=== PATIENT | female | born 1985 | race Caucasian/White ===

== ENCOUNTER → 2017-07-06 | Outpatient (CLI) | payer BC ==
--- NOTE | 2017-07-06 17:45 | XR ---
EXAMINATION TYPE: XR lumbar spine 2 or 3V DATE OF EXAM: 07/06/2017 COMPARISON: NONE HISTORY: 31-year-old female with lumbar pain TECHNIQUE: 3 views FINDINGS: Mild facet degenerative change lower lumbar spine. Minimal disc bulging may be present. Vertebral bod y heights are preserved and alignment is maintained. IMPRESSION: No vertebral compression collapse or malalignment.
== END | disposition home or self-care (01) ==
LOC: RADXRMAIN 15:59
PROVIDERS: ATTEND Family Medicine
DX: M54.5 Low back pain (principal)
CPT/HCPCS: 72100

== ENCOUNTER → 2018-07-13 | Outpatient (CLI) | payer BC ==
--- NOTE | 2018-07-13 12:40 | US ---
EXAMINATION TYPE: US abdomen complete DATE OF EXAM: 07/13/2018 COMPARISON: NONE CLINICAL HISTORY: R10.9 Abdominal Pain. Epigastric pain when bends over, with burning in abdomen; HT 5'9, WT 304lbs EXAM MEASUREMENTS: Liver Length: 14.1 cm Gallbladder Wall: 0.3 cm CBD: 0.2 cm Spleen: 10.5 cm Right Kidney: 9.7 x 6.1 x 5.3 cm Left Kidney: 10.0 x 5.3 x 4.6 cm Pancreas: hyperechoic and limitedly seen due to overlying bowel gas Liver: wnl Gallbladder: wnl Evidence for sonographic Chapman's sign: no CBD: wnl Spleen: vessel wall calcification is noted Right Kidney: wnl Left Kidney: hyperechoic very small focus noted lateral and may be calcified parallel vessel wall Upper IVC: wnl Abd Aorta: size is wnl IMPRESSION: 1. No acute abdominal ultrasound findings
== END | disposition home or self-care (01) ==
LOC: RADUSWWP 09:35
PROVIDERS: ATTEND Family Medicine
DX: R10.9 Unspecified abdominal pain (principal)
CPT/HCPCS: 76700

== ENCOUNTER → 2019-06-06 | Outpatient (CLI) | payer BC | END | disposition home or self-care (01) | LOC: LABWHC1 14:12 | PROVIDERS: ATTEND Obstetrics & Gynecology | DX: N97.0 Female infertility associated with anovulation (principal) | CPT/HCPCS: 36415; 84144 ==

== ENCOUNTER → 2019-08-06 | Outpatient (CLI) | payer BC | END | disposition home or self-care (01) | LOC: LABWHC1 15:43 | PROVIDERS: ATTEND Obstetrics & Gynecology | DX: N97.0 Female infertility associated with anovulation (principal) | CPT/HCPCS: 36415; 84144 ==

== ENCOUNTER → 2021-09-28 | Outpatient (CLI) | payer BC ==
--- NOTE | 2021-09-29 07:38 | MM ---
Reason for exam: clinical finding. Baseline mammogram. History: Patient is nulliparous. Took hormonal contraceptives for 2 months beginning at age 19. Physical Findings: Nurse did not find any significant physical abnormalities on exam. MG 3D Diag Mammo W/Cad ISABEL Bilateral CC and MLO view(s) were taken. There are scattered fibroglandular densities. Finding #1: There is a 4 mm equal density (isodense), oval mass in the 12 o'clock position of the right breast. Finding #2: There are typically benign calcifications in both breasts. These results were verbally communicated with the patient and result sheet given to the patient on 09/28/21. ASSESSMENT: Incomplete: need additional imaging evaluation, BI-RAD 0 RECOMMENDATION: Ultrasound of the right breast.
--- NOTE | 2021-09-29 07:40 | USB ---
Reason for exam: additional evaluation requested from abnormal screening. History: Patient is nulliparous. Took hormonal contraceptives for 2 months beginning at age 19. US Breast Limited RT Right limited breast ultrasound including focal area of concern, retroareolar and axilla demonstrates a 0.4 x 0.4 x 0.3cm oval, cystic lesion at 12 o'clock palpable. These results were verbally communicated with the patient and result sheet given to the patient on 09/28/21. ASSESSMENT: Probably benign, BI-RAD 3 RECOMMENDATION: Follow-up diagnostic mammogram of the right breast in 6 months.
== END | disposition home or self-care (01) ==
LOC: RADMAMWWP 14:16
PROVIDERS: ATTEND Obstetrics & Gynecology
DX: N60.01 Solitary cyst of right breast (principal); N63.15 Unspecified lump in the right breast, overlapping quadrants; R92.1 Mammographic calcification found on diagnostic imaging of breast
CPT/HCPCS: 77062; 77066

== ENCOUNTER 2021-10-13 23:03 | Emergency (ER) | payer BC ==
[2021-10-13 23:07] VITALS: BP 107/70; PULSE 111; RESP 19; TEMP 98.1
--- NOTE | 2021-10-14 01:33 | ED ---
SOB HPI - General Chief Complaint: Shortness of Breath Stated Complaint: Shortness of Breath, COVID+ Time Seen by Provider: 10/14/21 01:09 Source: patient, RN notes reviewed Mode of arrival: ambulatory Limitations: no limitations - History of Present Illness Initial Comments: Patient is a 35-year-old female that presents to the emergency department comp laining of increasing symptoms after being diagnosed with Covid. Patient is otherwise well-appearing in no apparent distress or pain. She denied any chest pain headache nausea vomiting diarrhea constipation fever fatigue chills. - Related Data Allergies Allergy/AdvReac Type Severity Reaction Status Date / Time No Known Allergies Allergy Verified 10/13/21 23:06 Review of Systems ROS Statement: Those systems with pertinent positive or pertinent negative responses have been documented in the HPI. ROS Other: All systems not noted in ROS Statement are negative. Past Medical History Past Medical History: No Reported History History of Any Multi-Drug Resistant Organisms: None Reported Past Surgical History: No Surgical Hx Reported Smoking Status: Never smoker Past Alcohol Use History: None Reported Past Drug Use History: None Reported General Exam Limitations: no limitations General appearance: alert, in no apparent distress, obese Head exam: Present: atraumatic, normocephalic, normal inspection Eye exam: Present: normal appearance, PERRL, EOMI. Absent: scleral icterus, conjunctival injection, periorbital swelling ENT exam: Present: normal exam, mucous membranes moist Neck exam: Present: normal inspection Respiratory exam: Present: normal lung sounds bilaterally. Absent: respiratory distress, wheezes, rales, rhonchi, stridor Cardiovascular Exam: Present: regular rate, normal rhythm, normal heart sounds. Absent: systolic murmur, diastolic murmur, rubs, gallop, clicks Extremities exam: Present: normal inspection, full ROM, normal capillary refill. Absent: tenderness, pedal edema, joint swelling, calf tenderness Neurological exam: Present: alert, oriented X3 Psychiatric exam: Present: normal affect, normal mood Skin exam: Present: warm, dry, intact, normal color. Absent: rash Course Vital Signs 10/13/21 23:04 Temperature 98.1 F Pulse Rate 111 H Respiratory 19 Rate Blood Pressure 107/70 O2 Sat by Pulse 99 Oximetry Medical Decision Making - Medical Decision Making 35 she'll female recently diagnosed with Covid. Patient does meet criteria for monoclonal antibody infusion. She does wish to undergo the infusion. Patient is agreeable with discharge home after infusion. Vital signs are stable and within normal limits and room. Case discussed with Dr. Bush, patient can discharge home. Disposition Clinical Impression: COVID Disposition: HOME SELF-CARE Condition: Stable Instructions (If sedation given, give patient instructions): Coronavirus Disease 2019 (COVID-19) Additional Instructions: Please return to the Emergency Department if symptoms worsen or any other concerns. Follow-up with primary care in 1-2 days. Quarantine per CDC guidelines. Is patient prescribed a controlled substance at d/c from ED?: No Referrals: Saul Dumas MD [Primary Care Provider] - 1-2 days Time of Disposition: 01:33
[2021-10-14] MEDS ORDERED: SODIUM CHLORIDE 0.9% 50 ML IVPB ONE (01:45)
[2021-10-14] MEDS ORDERED: BAMLANIVIMAB (EUA) 700 MG, ETESEVIMAB (EUA) 1,400 MG in SODIUM CHLORIDE 0.9% 50 ML IVPB ONE (02:00)
== END 2021-10-14 04:01 | disposition home or self-care (01) ==
LOC: EC 23:03
DX: U07.1 COVID-19 (principal); E66.9 Obesity, unspecified; Z68.41 Body mass index [BMI] 40.0-44.9, adult
CPT/HCPCS: 99284; J3490

== ENCOUNTER 2021-10-15 08:47 | Inpatient (IN) | payer BC ==
[2021-10-15] MEDS ORDERED: ACETAMINOPHEN TAB 500 MG TAB PO STA (08:59)
[2021-10-15] MEDS ORDERED: DEXAMETHASONE SOD PHOSPHATE 10 MG/ML 1 ML VIAL IV STA (09:00)
[2021-10-15] MEDS ORDERED: SODIUM CHLORIDE 0.9% 500 ML 500 ML IV ONE (09:23)
--- NOTE | 2021-10-15 09:23 | ED ---
General Adult HPI - General Chief complaint: Shortness of Breath Stated complaint: covid+, increased SOB Time Seen by Provider: 10/15/21 08:48 Source: patient, RN notes reviewed, old records reviewed Mode of arrival: ambulatory Limitations: no limitations - History of Present Illness Initial comments: 35-year-old female who had tested positive for coronavirus 5 days ago presents with increased cough and dyspnea. Patient has had low oxygen saturation at home. She's had fever and chills. She's had nausea and poor appetite with several episodes of vomiting. No central chest pain. No abdominal pain. Patient had received monoclonal antibodies 5 days ago. She's had symptoms for approximately 7 days. She was not vaccinated. - Related Data Home Medications Medication Instructions Recorded Confirmed Ascorbic Acid [Vitamin C] 500 mg PO DAILY 10/15/21 10/15/21 Cholecalciferol [Vitamin D3 (25 25 mcg PO DAILY 10/15/21 10/15/21 Mcg = 1000 Iu)] Ibuprofen [Motrin Ib] 800 mg PO Q8H PRN 10/15/21 10/15/21 Vitamin B Complex 1 cap PO DAILY 10/15/21 10/15/21 Zinc 50 mg PO DAILY 10/15/21 10/15/21 Allergies Allergy/AdvReac Type Severity Reaction Status Date / Time No Known Allergies Allergy Verified 10/15/21 10:45 Review of Systems ROS Statement: Those systems with pertinent positive or pertinent negative responses have been documented in the HPI. ROS Other: All systems not noted in ROS Statement are negative. Past Medical History Past Medical History: No Reported History History of Any Multi-Drug Resistant Organisms: None Reported Past Surgical History: No Surgical Hx Reported Past Psychological History: No Psychological Hx Reported Smoking Status: Former smoker Past Alcohol Use History: Occasional Past Drug Use History: None Reported General Exam Limitations: no limitations General appearance: alert, in no apparent distress Head exam: Present: atraumatic, normocephalic Eye exam: Present: normal appearance, PERRL ENT exam: Present: mucous membranes dry Neck exam: Present: normal inspection. Absent: tenderness, meningismus Respiratory exam: Present: respiratory distress, rales, rhonchi, decreased br eath sounds Cardiovascular Exam: Present: normal rhythm, tachycardia GI/Abdominal exam: Present: soft. Absent: distended, tenderness, guarding, rebound Extremities exam: Present: normal inspection, normal capillary refill Neurological exam: Present: alert, oriented X3, CN II-XII intact. Absent: motor sensory deficit Psychiatric exam: Present: normal affect, normal mood Skin exam: Present: warm, dry, intact. Absent: cyanosis, diaphoretic Course Vital Signs 10/15/21 10/15/21 10/15/21 08:49 09:25 11:20 Temperature 101.3 F H 99.2 F Pulse Rate 104 H 99 89 Respiratory 24 18 18 Rate Blood Pressure 131/70 114/69 103/63 O2 Sat by Pulse 87 L 93 L 94 L Oximetry EKG Findings - EKG Comments: EKG Findings:: EKG: Normal sinus rhythm, rate of 97, W[place] interval 1:30, QRS duration 82, QTC 419, no ST segment elevation. Medical Decision Making - Medical Decision Making 35-year-old female who had presented with increased cough and dyspnea as well as hypoxia, recent diagnosis of coronavirus. Patient is moderately dyspneic with oxygenation in the mid thigh 80s on room air. She does require supplemental oxygenation. Chest x-ray consistent with bilateral patchy infiltrate. She has elevated inflammatory markers including d-dimer, CRP and LVH. She will be admi tted for treatment of COVID-19 pneumonia with hypoxia. Case discussed with Dr. silverman who will admit. - Lab Data Result diagrams: 10/15/21 09:43 10/15/21 09:43 Lab Results 10/15/21 10/15/21 10/15/21 Range/Units 09:43 09:43 09:43 WBC 4.4 (3.8-10.6) k/uL RBC 4.08 (3.80-5.40) m/uL Hgb 11.9 (11.4-16.0) gm/dL Hct 34.5 (34.0-46.0) % MCV 84.4 (80.0-100.0) fL MCH 29.1 (25.0-35.0) pg MCHC 34.5 (31.0-37.0) g/dL RDW 13.5 (11.5-15.5) % Plt Count 189 (150-450) k/uL MPV 8.1 Neutrophils % 78 % Lymphocytes % 16 % Monocytes % 5 % Eosinophils % 0 % Basophils % 0 % Neutrophils # 3.5 (1.3-7.7) k/uL Lymphocytes # 0.7 L (1.0-4.8) k/uL Monocytes # 0.2 (0-1.0) k/uL Eosinophils # 0.0 (0-0.7) k/uL Basophils # 0.0 (0-0.2) k/uL PT 10.1 (9.0-12.0) sec INR 0.9 (<1.2) APTT 29.3 (22.0-30.0) sec D-Dimer 0.83 H (<0.60) mg/L FEU Sodium 132 L (137-145) mmol/L Potassium 3.5 (3.5-5.1) mmol/L Chloride 100 (98-107) mmol/L Carbon Dioxide 27 (22-30) mmol/L Anion Gap 5 mmol/L BUN 4 L (7-17) mg/dL Creatinine 0.68 (0.52-1.04) mg/dL Est GFR (CKD-EPI)AfAm >90 (>60 ml/min/1.73 sqM) Est GFR (CKD-EPI)NonAf >90 (>60 ml/min/1.73 sqM) Glucose 95 (74-99) mg/dL Plasma Lactic Acid Hoang (0.7-2.0) mmol/L Calcium 8.3 L (8.4-10.2) mg/dL Magnesium 1.8 (1.6-2.3) mg/dL Total Bilirubin 0.3 (0.2-1.3) mg/dL AST 67 H (14-36) U/L ALT 29 (4-34) U/L Alkaline Phosphatase 58 (38-126) U/L Lactate Dehydrogenase 1283 H (313-618) U/L C-Reactive Protein 18.6 H (<1.0) mg/dL Total Protein 6.2 L (6.3-8.2) g/dL Albumin 3.2 L (3.5-5.0) g/dL 10/15/21 Range/Units 09:43 WBC (3.8-10.6) k/uL RBC (3.80-5.40) m/uL Hgb (11.4-16.0) gm/dL Hct (34.0-46.0) % MCV (80.0-100.0) fL MCH (25.0-35.0) pg MCHC (31.0-37.0) g/dL RDW (11.5-15.5) % Plt Count (150-450) k/uL MPV Neutrophils % % Lymphocytes % % Monocytes % % Eosinophils % % Basophils % % Neutrophils # (1.3-7.7) k/uL Lymphocytes # (1.0-4.8) k/uL Monocytes # (0-1.0) k/uL Eosinophils # (0-0.7) k/uL Basophils # (0-0.2) k/uL PT (9.0-12.0) sec INR (<1.2) APTT (22.0-30.0) sec D-Dimer (<0.60) mg/L FEU Sodium (137-145) mmol/L Potassium (3.5-5.1) mmol/L Chloride (98-107) mmol/L Carbon Dioxide (22-30) mmol/L Anion Gap mmol/L BUN (7-17) mg/dL Creatinine (0.52-1.04) mg/dL Est GFR (CKD-EPI)AfAm (>60 ml/min/1.73 sqM) Est GFR (CKD-EPI)NonAf (>60 ml/min/1.73 sqM) Glucose (74-99) mg/dL Plasma Lactic Acid Hoang 0.6 L (0.7-2.0) mmol/L Calcium (8.4-10.2) mg/dL Magnesium (1.6-2.3) mg/dL Total Bilirubin (0.2-1.3) mg/dL AST (14-36) U/L ALT (4-34) U/L Alkaline Phosphatase (38-126) U/L Lactate Dehydrogenase (313-618) U/L C-Reactive Protein (<1.0) mg/dL Total Protein (6.3-8.2) g/dL Albumin (3.5-5.0) g/dL Disposition Clinical Impression: COVID, Hypoxia Disposition: ADMITTED IP TO THIS [facility] Condition: Stable Is patient prescribed a controlled substance at d/c from ED?: No Referrals: Saul Dumas MD [Primary Care Provider] - 1-2 days Decision to Admit Reason: Admit from EC Decision Date: 10/15/21 Decision Time: 11:24
--- NOTE | 2021-10-15 09:33 | XR ---
EXAMINATION TYPE: XR chest 1V portable DATE OF EXAM: 10/15/2021 COMPARISON: Prior chest x-ray March 06, 2012 HISTORY: Cough and congestion. TECHNIQUE: Single AP frontal upright view of the chest is obtained. FINDINGS: There are new bilateral multifocal opacities. The cardiac silhouette size is mildly enlar ged. The osseous structures are intact. IMPRESSION: New bilateral multifocal opacities consistent with covid-19 infection.
[2021-10-15 10:06] LABS: Basophils % (A) 0 %; Eosinophils % (A) 0 %; HCT 34.5 % (34.0-46.0); HGB 11.9 gm/dL (11.4-16.0); Lymphocytes # (A) 0.7 k/uL (1.0-4.8); Lymphocytes % (A) 16 %; MCH 29.1 pg (25.0-35.0); MCHC 34.5 g/dL (31.0-37.0); MCV 84.4 fL (80.0-100.0); Mean Platelet Volume 8.1; Monocytes # (A) 0.2 k/uL (0-1.0); Monocytes % (A) 5 %; Neutrophils # (A) 3.5 k/uL (1.3-7.7); Neutrophils % (A) 78 %; Platelet Count 189 k/uL (150-450); RBC 4.08 m/uL (3.80-5.40); RDW 13.5 % (11.5-15.5); WBC 4.4 k/uL (3.8-10.6)
[2021-10-15 10:19] LABS: ALT 29 U/L (4-34); AST 67 U/L (14-36); African American GFR (CKD) >90 (>60 ml/min/1.73 sqM); Albumin 3.2 g/dL (3.5-5.0); Alkaline Phosphatase 58 U/L (38-126); Anion Gap 5 mmol/L; Blood Urea Nitrogen 4 mg/dL (7-17); Calcium 8.3 mg/dL (8.4-10.2); Carbon Dioxide 27 mmol/L (22-30); Chloride 100 mmol/L (98-107); Glucose 95 mg/dL (74-99); LDH 1283 U/L (313-618); Magnesium 1.8 mg/dL (1.6-2.3); Non-African American GFR(CKD) >90 (>60 ml/min/1.73 sqM); Potassium 3.5 mmol/L (3.5-5.1); Sodium 132 mmol/L (137-145); Total Bilirubin 0.3 mg/dL (0.2-1.3); Total Protein 6.2 g/dL (6.3-8.2)
[2021-10-15 10:20] LABS: INR 0.9 (<1.2); Partial Thromboplastin Time 29.3 sec (22.0-30.0); Prothrombin Time 10.1 sec (9.0-12.0)
[2021-10-15 10:30] LABS: C Reactive Protein 18.6 mg/dL (<1.0)
[2021-10-15] MEDS ORDERED: ACETAMINOPHEN TAB 325 MG TAB PO PRN (11:22)
[2021-10-15] MEDS ORDERED: NALOXONE 0.4 MG/ML 1 ML VIAL IV PRN (11:22)
[2021-10-15] MEDS: SODIUM CHLORIDE 0.9% 1,000 ML IV SCH (11:55)
[2021-10-16] MEDS: SODIUM CHLORIDE 0.9% 1,000 ML IV SCH ×2 (00:50→14:58)
[2021-10-16] MEDS: ASCORBIC ACID 500 MG TAB PO SCH (08:53)
[2021-10-16] MEDS: CHOLECALCIFEROL 25 MCG (1000 IU) TABLET PO SCH (08:53)
[2021-10-16] MEDS: ENOXAPARIN 40 MG/0.4 ML SYRINGE SQ SCH (08:54)
[2021-10-16] MEDS: DEXAMETHASONE SOD PHOSPHATE 10 MG/ML 1 ML VIAL IVP SCH (08:54)
[2021-10-16 08:57] LABS: HCG,Qualitative Serum Not Detected
[2021-10-16] MEDS: ZINC SULFATE 220 MG CAP PO SCH (09:26)
[2021-10-16] MEDS: FAMOTIDINE 20 MG/2 ML VIAL IV SCH ×2 (09:26→20:27)
--- NOTE | 2021-10-16 09:39 | P.HPIM ---
History of Present Illness This is a pleasant 35 years old female with no significant past medical history presents because of dyspnea on 4 days duration, she was checking her oxygen at home and it was less than 88% so she decided to come to emergency room 2 days ago she went to urgent care and they diagnosed her with call with infection. Also she is complaining of from cough with phlegm, unknown color. She has some bilateral rib cage pain from coughi ng. She has little area and vomited once and some headache. She denies smoking, alcohol Or illicit drugs She is saturating 92% on 3 L oxygen via nasal cannula, rest of vitals are stable. CBC unremarkable except for mild lymphopenia. INR 0.9, d-dimer slightly elevated at 0.83. Sodium 132, rest of the BMP is unremarkable. Liver enzymes, no significant elevation of enzymes or bilirubin. Creatinine is elevated at 390, LDH elevated 1283 and C-reactive protein 18.6 Priorcalcitonin is slightly elevated at 0.19 chest x-ray: Bilateral multifocal opacities consistent with Covid infection EKG showing normal sinus rhythm at [address]-T changes Review of Systems CONSTITUTIONAL: No fever, no malaise, no fatigue. HEENT: No recent visual problems or hearing problems. Denied any sore throat. CARDIOVASCULAR: No orthopnea, PND, no palpitations, no syncope. PULMONARY: No chest wall tenderness, no hemoptysis. GASTROINTESTINAL: No diarrhea, no nausea, no vomiting, no abdominal pain. Normoactive bowel sounds. NEUROLOGICAL: No headaches, no weakness, no numbness. HEMATOLOGICAL: Denies any bleeding or petechiae. GENITOURINARY: Denies any burning micturition, frequency, or urgency. MUSCULOSKELETAL/RHEUMATOLOGICAL: Denies any joint pain, swelling, or any muscle pain. ENDOCRINE: Denies any polyuria or polydipsia. Past Medical History Past Medical History: No Reported History History of Any Multi-Drug Resistant Organisms: None Reported Past Surgical History: Adenoidectomy Additional Past Surgical History / Comment(s): Tubes in ears as a child. Past Anesthesia/Blood Transfusion Reactions: No Reported Reaction Past Psychological History: No Psychological Hx Reported Smoking Status: Former smoker Past Alcohol Use History: Occasional Past Drug Use History: None Reported Medications and Allergies Home Medications Medication Instructions Recorded Confirmed Type Ascorbic Acid [Vitamin C] 500 mg PO DAILY 10/15/21 10/15/21 History Cholecalciferol [Vitamin D3 (25 25 mcg PO DAILY 10/15/21 10/15/21 History Mcg = 1000 Iu)] Ibuprofen [Motrin Ib] 800 mg PO Q8H PRN 10/15/21 10/15/21 History Vitamin B Complex 1 cap PO DAILY 10/15/21 10/15/21 History Zinc 50 mg PO DAILY 10/15/21 10/15/21 History Allergies Allergy/AdvReac Type Severity Reaction Status Date / Time No Known Allergies Allergy Verified 10/15/21 10:45 Physical Exam Vitals: Vital Signs Temp Pulse Pulse Resp BP BP Pulse Ox 10/16/21 01:00 97.7 F 76 16 112/77 93 L 10/15/21 23:27 18 10/15/21 23:25 97.5 F L 77 16 110/73 92 L 10/15/21 21:35 83 18 114/76 94 L 10/15/21 17:37 98 18 109/76 94 L 10/15/21 15:56 85 18 104/65 98 10/15/21 13:46 96 18 96/68 94 L 10/15/21 11:20 99.2 F 89 18 103/63 94 L 10/15/21 09:25 99 18 114/69 93 L 10/15/21 08:49 101.3 F H 104 H 24 131/70 87 L Intake and Output 10/15/21 10/16/21 10/16/21 22:59 06:59 14:59 Other: Voiding Method Toilet # Voids 1 Weight 131.542 kg GENERAL: The patient is alert and oriented x3, not in any acute distress. Well developed, well nourished. HEENT: Pupils are round and equally reacting to light. EOMI. No scleral icterus. No conjunctival pallor. Normocephalic, atraumatic. No pharyngeal erythema. No thyromegaly. CARDIOVASCULAR: S1 and S2 present. No murmurs, rubs, or gallops. -PULMONARY: Chest is clear to auscultation, no wheezing or crackles. Lateral crepitation ABDOMEN: Soft, nontender, nondistended, normoactive bowel sounds. No palpable organomegaly. MUSCULOSKELETAL: No joint swelling or deformity. EXTREMITIES: No cyanosis, clubbing, or pedal edema. NEUROLOGICAL: Gross neurological examination did not reveal any focal deficits. SKIN: No rashes. No petechiae Results CBC & Chem 7: 10/15/21 09:43 10/15/21 09:43 Labs: Abnormal Lab Results - Last 24 Hours (Table) 10/15/21 10/15/21 10/15/21 Range/Units 09:43 09:43 09:43 Lymphocytes # 0.7 L (1.0-4.8) k/uL D-Dimer 0.83 H (<0.60) mg/L FEU Sodium 132 L (137-145) mmol/L BUN 4 L (7-17) mg/dL Plasma Lactic Acid Hoang (0.7-2.0) mmol/L Calcium 8.3 L (8.4-10.2) mg/dL Ferritin 390.0 H (10.0-291.0) ng/mL AST 67 H (14-36) U/L Lactate Dehydrogenase 1283 H (313-618) U/L C-Reactive Protein 18.6 H (<1.0) mg/dL Total Protein 6.2 L (6.3-8.2) g/dL Albumin 3.2 L (3.5-5.0) g/dL Procalcitonin (0.02-0.09) ng/mL 10/15/21 10/15/21 Range/Units 09:43 09:43 Lymphocytes # (1.0-4.8) k/uL D-Dimer (<0.60) mg/L FEU Sodium (137-145) mmol/L BUN (7-17) mg/dL Plasma Lactic Acid Hoang 0.6 L (0.7-2.0) mmol/L Calcium (8.4-10.2) mg/dL Ferritin (10.0-291.0) ng/mL AST (14-36) U/L Lactate Dehydrogenase (313-618) U/L C-Reactive Protein (<1.0) mg/dL Total Protein (6.3-8.2) g/dL Albumin (3.5-5.0) g/dL Procalcitonin 0.19 H (0.02-0.09) ng/mL Thrombosis Risk Factor Assmnt - Choose All That Apply Each Factor Represents 1 point: Obesity (BMI >25) Thrombosis Risk Factor Assessment Total Risk Factor Score: 1 Thrombosis Risk Factor Assessment Level: Low Risk Assessment and Plan Assessment: Bilateral Covid pneumonia Acute hypoxic respiratory failure Increased inflammatory markers Obesity with BMI 42.8 Plan: covid pneumonia Continue with dexamethasone Continue with vitamin C, vitamin D and zinc Pulmonary consult Labs and medication were reviewed.. Continue same treatment. Continue with sym ptomatic treatment. Resume home medication. Monitor lytes and vitals. DVT and GI prophylaxis. Further recommendations depends on the clinical course of the patient DVT prophylaxis: Subcutaneous heparin GI Prophylaxis: Pepcid
[2021-10-16 09:45] LABS: African American GFR (CKD) >90 (>60 ml/min/1.73 sqM); Anion Gap 5 mmol/L; Blood Urea Nitrogen 9 mg/dL (7-17); Calcium 8.5 mg/dL (8.4-10.2); Carbon Dioxide 29 mmol/L (22-30); Chloride 104 mmol/L (98-107); Glucose 124 mg/dL (74-99); LDH 1366 U/L (313-618); Non-African American GFR(CKD) >90 (>60 ml/min/1.73 sqM); Potassium 4.4 mmol/L (3.5-5.1); Sodium 138 mmol/L (137-145)
--- NOTE | 2021-10-16 18:17 | P.CNPUL ---
History of Present Illness Consult date: 10/16/21 Requesting physician: Gildardo Tafoya Reason for consult: dyspnea, abnormal CXR/CT Chief complaint: Shortness of breath, cough History of present illness: This is a very pleasant 35-year-old female patient who follows with Dr. Dumas as her primary care provider. She has a history of migraines. Approximately 10 days ago she developed symptoms of increasing shortness of breath, cough and congestion. She presented here on 10/10/2021 was found to have COVID-19 infection. She was treated with monoclonal antibodies and discharged home. She re-presented here yesterday with worsening shortness of breath, cough and congestion. O2 saturation 87% on room air. Chest x-ray shows bilateral mult ifocal patchy opacities. I count 4.4. Hemoglobin 11.9. Lymphocytes 0.7. D- dimer 0.83. Sodium 138. Potassium 4.4. Glucose 124. Ferritin 390. LDH 1366. C-reactive protein 13.0. HCG negative. Pro-calcitonin 0.12. She was initiated on Decadron, Lovenox, vitamin supplements. He is seen today in consultation on the regular medical floor. Currently sitting on the bed. Awake and alert in no acute distress. No worsening shortness of breath, cough or congestion. Maintaining O2 saturations in the 90s on 3 L/m per nasal cannula. Review of Systems REVIEW OF SYSTEMS: CONSTITUTIONAL: Denies any recent significant weight loss or weight gain. EYES: Denies change in vision. EARS, NOSE, MOUTH, THROAT: Denies headaches, denies sore throat. CARDIOVASCULAR: Denies chest pain, palpitations or syncopal episodes. RESPIRATORY: Positive for shortness of breath, cough, congestion no hemoptysis. GASTROINTESTINAL: Denies change in appetite, denies abdominal pain GENITOURINARY: Denies hematuria, denies infections. MUSKULOSKELETAL: Denies pain, denies swelling. INTEGUMENTARY: Denies rash, denies eczema. NEUROLOGICAL: Denies recent memory loss, no recent seizure activity. PSYCHIATRIC: Denies anxiety, denies depression. HEMATOLOGIC/LYMPHATIC: Denies anemia, denies enlarged lymph nodes. Past Medical History Past Medical History: No Reported History History of Any Multi-Drug Resistant Organisms: None Reported Past Surgical History: Adenoidectomy Additional Past Surgical History / Comment(s): Tubes in ears as a child. Past Anesthesia/Blood Transfusion Reactions: No Reported Reaction Past Psychological History: No Psychological Hx Reported Smoking Status: Former smoker Past Alcohol Use History: Occasional Past Drug Use History: None Reported Medications and Allergies Home Medications Medication Instructions Recorded Confirmed Type Ascorbic Acid [Vitamin C] 500 mg PO DAILY 10/15/21 10/15/21 History Cholecalciferol [Vitamin D3 (25 25 mcg PO DAILY 10/15/21 10/15/21 History Mcg = 1000 Iu)] Ibuprofen [Motrin Ib] 800 mg PO Q8H PRN 10/15/21 10/15/21 History Vitamin B Complex 1 cap PO DAILY 10/15/21 10/15/21 History Zinc 50 mg PO DAILY 10/15/21 10/15/21 History Allergies Allergy/AdvReac Type Severity Reaction Status Date / Time No Known Allergies Allergy Verified 10/15/21 10:45 Physical Exam Vitals: Vital Signs Temp Pulse Pulse Resp BP BP Pulse Ox 10/16/21 14:00 97.8 F 89 16 118/85 93 L 10/16/21 09:00 97 10/16/21 08:00 18 10/16/21 07:52 97.7 F 78 16 121/84 92 L 10/16/21 01:00 97.7 F 76 16 112/77 93 L 10/15/21 23:27 18 10/15/21 23:25 97.5 F L 77 16 110/73 92 L 10/15/21 21:35 83 18 114/76 94 L Intake and Output 10/16/21 10/16/21 10/16/21 06:59 14:59 22:59 Intake Total 236 Balance 236 Intake: Oral 236 Other: Voiding Method Toilet # Voids 1 3 # Bowel Movements 1 Weight 131.542 kg GENERAL EXAM: Alert, pleasant 35-year-old female on 3 L nasal cannula, fairly comfortable in no apparent distress. HEAD: Normocephalic. EYES: Normal reaction of pupils, equal size. NOSE: Clear with pink turbinates. THROAT: No erythema or exudates. NECK: No masses, no JVD. CHEST: No chest wall deformity. LUNGS: Equal air entry with coarse crackles in the bilateral bases. CVS: S1 and S2 normal with no audible murmur, regular rhythm. ABDOMEN: No hepatosplenomegaly, normal bowel sounds, no guarding or rigidity. SPINE: No scoliosis or deformity SKIN: No rashes CENTRAL NERVOUS SYSTEM: No focal deficits, tone is normal in all 4 extremities. EXTREMITIES: There is no peripheral edema. No clubbing, no cyanosis. Kandis pheral pulses are intact. Results - Laboratory Findings CBC and BMP: 10/15/21 09:43 10/16/21 08:09 PT/INR, D-dimer PT 10.1 sec (9.0-12.0) 10/15/21 09:43 INR 0.9 (<1.2) 10/15/21 09:43 D-Dimer 0.83 mg/L FEU (<0.60) H 10/15/21 09:43 Abnormal lab findings: Abnormal Labs 10/15/21 10/15/21 10/15/21 09:43 09:43 09:43 Lymphocytes # 0.7 L D-Dimer 0.83 H Sodium 132 L BUN 4 L Glucose Plasma Lactic Acid Hoang Calcium 8.3 L Ferritin 390.0 H AST 67 H Lactate Dehydrogenase 1283 H C-Reactive Protein 18.6 H Total Protein 6.2 L Albumin 3.2 L Procalcitonin 10/15/21 10/15/21 10/16/21 09:43 09:43 08:09 Lymphocytes # D-Dimer Sodium BUN Glucose 124 H Plasma Lactic Acid Hoang 0.6 L Calcium Ferritin AST Lactate Dehydrogenase 1366 H C-Reactive Protein 13.0 H Total Protein Albumin Procalcitonin 0.19 H - Diagnostic Findings Chest x-ray: image reviewed Assessment and Plan Assessment: 1 Acute hypoxemic respiratory failure secondary to COVID-19 pneumonia. Symptoms started 10 days ago. She received monoclonal antibodies on 10/10/2021. Not vaccinated. Outside the window for Remdesivir. 2 Elevated inflammatory markers secondary to above 3 History of migraines 4 Obesity Plan: The patient was seen and evaluated by Dr. Ashford Chest x-ray and labs reviewed Outside the window for Remdesivir Continue Lovenox, Decadron, vitamin supplements Titrate the FiO2 as tolerated We'll continue to follow and make further recommendations based on her clinical status I, the cosigning physician, performed a history & physical examination of the patient. Lungs sounds bibasilar coarse crackles. Maintaining good O2 saturations in the 90s on 3 L/m per nasal cannula. I discussed the assessment and plan of care with my nurse practitioner, Francy Weller. I attest to the above consultation as dictated by her. Time with Patient: Greater than 30
[2021-10-16] MEDS: ALBUTEROL HFA INHALER INHALATION SCH (21:03)
[2021-10-17] MEDS: SODIUM CHLORIDE 0.9% 1,000 ML IV SCH ×3 (03:23→23:46)
[2021-10-17] MEDS: ZINC SULFATE 220 MG CAP PO SCH (08:08)
[2021-10-17] MEDS: CHOLECALCIFEROL 25 MCG (1000 IU) TABLET PO SCH (08:08)
[2021-10-17] MEDS: DEXAMETHASONE SOD PHOSPHATE 10 MG/ML 1 ML VIAL IVP SCH (08:08)
[2021-10-17] MEDS: ENOXAPARIN 40 MG/0.4 ML SYRINGE SQ SCH (08:08)
[2021-10-17] MEDS: ASCORBIC ACID 500 MG TAB PO SCH (08:08)
[2021-10-17] MEDS: FAMOTIDINE 20 MG/2 ML VIAL IV SCH (08:09)
[2021-10-17] MEDS: ALBUTEROL HFA INHALER INHALATION SCH ×3 (08:41→20:31)
--- NOTE | 2021-10-17 15:52 | P.PN ---
Subjective Progress Note Date: 10/17/21 Principal diagnosis: COVID-19 pneumonia This is a very pleasant 35-year-old female patient who follows with Dr. Dumas as her primary care provider. She has a history of migraines. Approximately 10 days ago she developed symptoms of increasing shortness of breath, cough and co ngestion. She presented here on 10/10/2021 was found to have COVID-19 infection. She was treated with monoclonal antibodies and discharged home. She re-presented here yesterday with worsening shortness of breath, cough and congestion. O2 saturation 87% on room air. Chest x-ray shows bilateral m ultifocal patchy opacities. I count 4.4. Hemoglobin 11.9. Lymphocytes 0.7. D-dimer 0.83. Sodium 138. Potassium 4.4. Glucose 124. Ferritin 390. LDH 1366. C-reactive protein 13.0. HCG negative. Pro-calcitonin 0.12. She was initiated on Decadron, Lovenox, vitamin supplements. He is seen today in consultation on the regular medical floor. Currently sitting on the bed. Awake and alert in no acute distress. No worsening shortness of breath, cough or congestion. Maintaining O2 saturations in the 90s on 3 L/m per nasal cannula. The patient is seen today 10/17/2021 and follow-up on the regular medical floor. She is currently resting comfortably in bed. Awake and alert in no acute distress. 2 and a bit better today compared to yesterday. Still with a cough and congestion. No fever or chills. Some shortness of breath with exertion. She has 0.9 normal saline at 75 ML's per hour. She is maintaining O2 saturation in the 90s on 3 L/m per nasal cannula. She is continued on Decadron, Lovenox, vitamin supplements. Objective - Vital Signs Vital signs: Vital Signs Temp 96.5 F L 10/17/21 08:00 Pulse 76 10/17/21 08:00 Resp 16 10/17/21 08:00 BP 138/90 10/17/21 08:00 Pulse Ox 91 L 10/17/21 08:00 Intake & Output 10/16/21 10/17/21 10/17/21 18:59 06:59 18:59 Intake Total 354 946 Balance 354 946 Intake: Oral 354 946 Other: # Voids 3 3 # Bowel Movements 1 - Exam GENERAL EXAM: Alert, pleasant 35 year old female patient, on 3 L nasal cannula, comfortable in no apparent distress. HEAD: Normocephalic. EYES: Normal reaction of pupils, equal size. NOSE: Clear with pink turbinates. THROAT: No erythema or exudates. NECK: No masses, no JVD. CHEST: No chest wall deformity. LUNGS: Equal air entry with few scattered rhonchi, crackles in the bases CVS: S1 and S2 normal with no audible murmur, regular rhythm. ABDOMEN: No hepatosplenomegaly, normal bowel sounds, no guarding or rigidity. SPINE: No scoliosis or deformity SKIN: No rashes CENTRAL NERVOUS SYSTEM: No focal deficits, tone is normal in all 4 extremities. EXTREMITIES: There is no peripheral edema. No clubbing, no cyanosis. Peripheral pulses are intact. - Labs CBC & Chem 7: 10/15/21 09:43 10/16/21 08:09 Assessment and Plan Assessment: 1 Acute hypoxemic respiratory failure secondary to COVID-19 pneumonia. Symptoms started 10 days ago. She received monoclonal antibodies on 10/10/2021. Not vaccinated. Outside the window for Remdesivir. 2 Elevated inflammatory markers secondary to above 3 History of migraines 4 Obesity Plan: The patient was seen and evaluated by Dr. Ashford Continue Lovenox, Decadron, vitamin supplements Titrate the FiO2 as tolerated Follow-up chest x-ray and labs in the a.m. We'll continue to follow I, the cosigning physician, performed a history & physical examination of the patient. Lungs sounds few scattered rhonchi, crackles in the bases. Maintaining good O2 saturations in the 90s on 3 L/m per nasal cannula. I discussed the assessment and plan of care with my nurse practitioner, Francy Weller. I attest to the above note as dictated by her.
[2021-10-17] MEDS: FAMOTIDINE 20 MG TAB PO SCH (20:24)
--- NOTE | 2021-10-17 21:30 | P.PN ---
Subjective This is a pleasant 35 years old female with no significant past medical history presents because of dyspnea on 4 days duration, she was checking her oxygen at home and it was less than 88% so she decided to come to emergency room 2 days ago she went to urgent care and they diagnosed her with call with infection. Also she is complaining of from cough with phlegm, unknown color. She has some bilateral rib cage pain from coughing. She has little area and vomited once and some headache. She denies smoking, alcohol Or illicit drugs She is saturating 92% on 3 L oxygen via nasal cannula, rest of vitals are stable. CBC unremarkable except for mild lymphopenia. INR 0.9, d-dimer slightly elevated at 0.83. Sodium 132, rest of the BMP is unremarkable. Liver enzymes, no significant elevation of enzymes or bilirubin. Creatinine is elevated at 390, LDH elevated 1283 and C-reactive protein 18.6 Priorcalcitonin is slightly elevated at 0.19 chest x-ray: Bilateral multifocal opacities consistent with Covid infection EKG showing normal sinus rhythm at [address]-T changes 10/17/2021 Patient dyspnea is not worsening today. She is on 3 L oxygen via nasal cannula Hemodynamically stable. She still on dexamethasone, vitamin C, vitamin D and zinc. She is on Lovenox and Pepcid Repeat labs and chest x-ray in the morning Objective - Vital Signs Vital signs: Vital Signs Temp 96.5 F L 10/17/21 08:00 Pulse 76 10/17/21 08:00 Resp 16 10/17/21 08:00 BP 138/90 10/17/21 08:00 Pulse Ox 91 L 10/17/21 08:00 Intake & Output 10/16/21 10/17/21 10/17/21 18:59 06:59 18:59 Intake Total 354 473 Balance 354 473 Intake: Oral 354 473 Other: # Voids 3 3 # Bowel Movements 1 - Exam GENERAL: The patient is alert and oriented x3, not in any acute distress. Well developed, well nourished. HEENT: Pupils are round and equally reacting to light. EOMI. No scleral icterus. No conjunctival pallor. Normocephalic, atraumatic. No pharyngeal erythema. No thyromegaly. CARDIOVASCULAR: S1 and S2 present. No murmurs, rubs, or gallops. PULMONARY: Chest is clear to auscultation, no wheezing or crackles. ABDOMEN: Soft, nontender, nondistended, normoactive bowel sounds. No palpable organomegaly. MUSCULOSKELETAL: No joint swelling or deformity. EXTREMITIES: No cyanosis, clubbing, or pedal edema. NEUROLOGICAL: Gross neurological examination did not reveal any focal deficits. SKIN: No rashes. no petechiae. - Labs CBC & Chem 7: 10/15/21 09:43 10/16/21 08:09 Assessment and Plan Assessment: Bilateral Covid pneumonia Acute hypoxic respiratory failure Increased inflammatory markers Obesity with BMI 42.8 Plan: covid pneumonia Continue with dexamethasone Continue with vitamin C, vitamin D and zinc Pulmonary consult Labs and medication were reviewed.. Continue same treatment. Continue with symptomatic treatment. Resume home medication. Monitor lytes and vitals. DVT and GI prophylaxis. Further recommendations depends on the clinical course of the patient DVT prophylaxis: Subcutaneous heparin GI Prophylaxis: Pepcid
[2021-10-18] MEDS: ASCORBIC ACID 500 MG TAB PO SCH (08:29)
[2021-10-18] MEDS: ZINC SULFATE 220 MG CAP PO SCH (08:29)
[2021-10-18] MEDS: CHOLECALCIFEROL 25 MCG (1000 IU) TABLET PO SCH (08:29)
[2021-10-18] MEDS: DEXAMETHASONE SOD PHOSPHATE 10 MG/ML 1 ML VIAL IVP SCH (08:30)
[2021-10-18] MEDS: FAMOTIDINE 20 MG TAB PO SCH ×2 (08:30→21:39)
[2021-10-18] MEDS: ENOXAPARIN 40 MG/0.4 ML SYRINGE SQ SCH (08:30)
[2021-10-18] MEDS: ALBUTEROL HFA INHALER INHALATION SCH ×3 (10:15→20:59)
[2021-10-18 10:47] LABS: C Reactive Protein 2.1 mg/dL (0.00-0.80)
--- NOTE | 2021-10-18 11:20 | XR ---
EXAMINATION TYPE: XR chest 1V portable DATE OF EXAM: 10/18/2021 COMPARISON: 10/15/2021 HISTORY: 35 years Female. STUDY INDICATION GIVEN: COVID-19 pneumonia . TECHNIQUE: AP chest radiograph IMPRESSION: Stable to mildly worsened bilateral airspace and interstitial opacities likely related to multifocal infection, follow-up to resolution recommended. No pneumothorax or large effusion. Mild prominence of the cardiac silhouette similar to prior study. No acute osseous abnormalities seen.
--- NOTE | 2021-10-18 16:32 | P.PN ---
Subjective Progress Note Date: 10/18/21 Principal diagnosis: COVID-19 pneumonia This is a very pleasant 35-year-old female patient who follows with Dr. Dumas as her primary care provider. She has a history of migraines. Approximately 10 days ago she developed symptoms of increasing shortness of breath, cough and co ngestion. She presented here on 10/10/2021 was found to have COVID-19 infection. She was treated with monoclonal antibodies and discharged home. She re-presented here yesterday with worsening shortness of breath, cough and congestion. O2 saturation 87% on room air. Chest x-ray shows bilateral m ultifocal patchy opacities. I count 4.4. Hemoglobin 11.9. Lymphocytes 0.7. D-dimer 0.83. Sodium 138. Potassium 4.4. Glucose 124. Ferritin 390. LDH 1366. C-reactive protein 13.0. HCG negative. Pro-calcitonin 0.12. She was initiated on Decadron, Lovenox, vitamin supplements. He is seen today in consultation on the regular medical floor. Currently sitting on the bed. Awake and alert in no acute distress. No worsening shortness of breath, cough or congestion. Maintaining O2 saturations in the 90s on 3 L/m per nasal cannula. The patient is seen today 10/17/2021 and follow-up on the regular medical floor. She is currently resting comfortably in bed. Awake and alert in no acute distress. 2 and a bit better today compared to yesterday. Still with a cough and congestion. No fever or chills. Some shortness of breath with exertion. She has 0.9 normal saline at 75 ML's per hour. She is maintaining O2 saturation in the 90s on 3 L/m per nasal cannula. She is continued on Decadron, Lovenox, vitamin supplements. The patient is seen today 10/18/2021 in follow-up on the regular medical floor. She is awake and alert in no acute distress. She is maintaining good O2 satur ations in the 90s on 2 L/m per nasal cannula. Chest x-ray continues to show bilateral airspace and interstitial opacities secondary to COVID-19 pneumonia. d-dimer 1.36. LDH 525. C-reactive protein 2.10. She is continued on Decadron, Lovenox, vitamin supplements. Objective - Vital Signs Vital signs: Vital Signs Temp 97.6 F 10/18/21 15:13 Pulse 62 10/18/21 15:13 Resp 16 10/18/21 15:13 BP 142/83 10/18/21 15:13 Pulse Ox 92 L 10/18/21 15:13 Intake & Output 10/17/21 10/18/21 10/18/21 18:59 06:59 18:59 Intake Total 946 725 118 Balance 946 725 118 Intake: Intake, IV Titration 725 Amount Sodium Chloride 0.9% 1, 725 000 ml @ 75 mls/hr IV . [id number] [facility] Rx#:[id number] Oral 946 118 Other: # Voids 1 - Exam GENERAL EXAM: Alert, pleasant 35 year old female patient, on 2 L nasal cannula, comfortable in no apparent distress. HEAD: Normocephalic. EYES: Normal reaction of pupils, equal size. NOSE: Clear with pink turbinates. THROAT: No erythema or exudates. NECK: No masses, no JVD. CHEST: No chest wall deformity. LUNGS: Equal air entry with few scattered rhonchi, crackles in the bases CVS: S1 and S2 normal with no audible murmur, regular rhythm. ABDOMEN: No hepatosplenomegaly, normal bowel sounds, no guarding or rigidity. SPINE: No scoliosis or deformity SKIN: No rashes CENTRAL NERVOUS SYSTEM: No focal deficits, tone is normal in all 4 extremities. EXTREMITIES: There is no peripheral edema. No clubbing, no cyanosis. Peripheral pulses are intact. - Labs CBC & Chem 7: 10/15/21 09:43 10/16/21 08:09 Labs: Abnormal Lab Results - Last 24 Hours (Table) 10/18/21 10/18/21 Range/Units 05:55 06:19 D-Dimer 1.36 H (<0.60) mg/L FEU Lactate Dehydrogenase 525 H (120-246) U/L C-Reactive Protein 2.10 H (0.00-0.80) mg/dL Assessment and Plan Assessment: 1 Acute hypoxemic respiratory failure secondary to COVID-19 pneumonia. Symptoms started 10 days ago. She received monoclonal antibodies on 10/10/2021. Not vaccinated. Outside the window for Remdesivir. 2 Elevated inflammatory markers secondary to above 3 History of migraines 4 Obesity Plan: The patient was seen and evaluated by Dr. Ashford Continue Lovenox, Decadron, vitamin supplements Titrate the FiO2 as tolerated We'll continue to follow I, the cosigning physician, performed a history & physical examination of the patient. Lungs sounds few scattered rhonchi, crackles in the bases. Maintaining good O2 saturations in the 90s on 2 L/m per nasal cannula. I discussed the assessment and plan of care with my nurse practitioner, Francy Weller. I attest to the above note as dictated by her.
[2021-10-18] MEDS: SODIUM CHLORIDE 0.9% 1,000 ML IV SCH (19:44)
--- NOTE | 2021-10-18 22:30 | P.PN ---
Subjective This is a pleasant 35 years old female with no significant past medical history presents because of dyspnea on 4 days duration, she was checking her oxygen at home and it was less than 88% so she decided to come to emergency room 2 days ago she went to urgent care and they diagnosed her with call with infection. Also she is complaining of from cough with phlegm, unknown color. She has some bilateral rib cage pain from coughing. She has little area and vomited once and some headache. She denies smoking, alcohol Or illicit drugs She is saturating 92% on 3 L oxygen via nasal cannula, rest of vitals are stable. CBC unremarkable except for mild lymphopenia. INR 0.9, d-dimer slightly elevated at 0.83. Sodium 132, rest of the BMP is unremarkable. Liver enzymes, no significant elevation of enzymes or bilirubin. Creatinine is elevated at 390, LDH elevated 1283 and C-reactive protein 18.6 Priorcalcitonin is slightly elevated at 0.19 chest x-ray: Bilateral multifocal opacities consistent with Covid infection EKG showing normal sinus rhythm at [address]-T changes 10/17/2021 Patient dyspnea is not worsening today. She is on 3 L oxygen via nasal cannula Hemodynamically stable. She still on dexamethasone, vitamin C, vitamin D and zinc. She is on Lovenox and Pepcid Repeat labs and chest x-ray in the morning 10/18/2021 Patient with no significant dyspnea at rest while sitting in bed. Her oxygen saturation is 92% on 3 L/m. D-dimer slightly elevated at 0.8 up to 1.3, but inflammatory markers trending down LDH to 525 and C-reactive protein to 2.1. Chest x-ray showing bilateral infiltrate, slightly worse according to radiologist. She is still on dexamethasone, vitamins and normal saline. Patient still needs to be monitored in the hospital Objective - Vital Signs Vital signs: Vital Signs Temp 98.0 F 10/18/21 08:00 Pulse 56 L 10/18/21 08:00 Resp 16 10/18/21 08:00 BP 133/87 10/18/21 08:00 Pulse Ox 91 L 10/18/21 10:10 Intake & Output 10/17/21 10/18/21 10/18/21 18:59 06:59 18:59 Intake Total 946 725 118 Balance 946 725 118 Intake: Intake, IV Titration 725 Amount Sodium Chloride 0.9% 1, 725 000 ml @ 75 mls/hr IV . [id number] [facility] Rx#:[id number] Oral 946 118 Other: # Voids 1 - Exam GENERAL: The patient is alert and oriented x3, not in any acute distress. Well developed, well nourished. HEENT: Pupils are round and equally reacting to light. EOMI. No scleral icterus. No conjunctival pallor. Normocephalic, atraumatic. No pharyngeal erythema. No thyromegaly. CARDIOVASCULAR: S1 and S2 present. No murmurs, rubs, or gallops. PULMONARY: Chest is clear to auscultation, no wheezing or crackles. ABDOMEN: Soft, nontender, nondistended, normoactive bowel sounds. No palpable organomegaly. MUSCULOSKELETAL: No joint swelling or deformity. EXTREMITIES: No cyanosis, clubbing, or pedal edema. NEUROLOGICAL: Gross neurological examination did not reveal any focal deficits. SKIN: No rashes. no petechiae. - Labs CBC & Chem 7: 10/15/21 09:43 10/16/21 08:09 Labs: Abnormal Lab Results - Last 24 Hours (Table) 10/18/21 10/18/21 Range/Units 05:55 06:19 D-Dimer 1.36 H (<0.60) mg/L FEU Lactate Dehydrogenase 525 H (120-246) U/L C-Reactive Protein 2.10 H (0.00-0.80) mg/dL Assessment and Plan Assessment: Bilateral Covid pneumonia Acute hypoxic respiratory failure Increased inflammatory markers Obesity with BMI 42.8 Plan: covid pneumonia Continue with dexamethasone Continue with vitamin C, vitamin D and zinc Pulmonary consult Labs and medication were reviewed.. Continue same treatment. Continue with symptomatic treatment. Resume home medication. Monitor lytes and vitals. DVT and GI prophylaxis. Further recommendations depends on the clinical course of the patient DVT prophylaxis: Subcutaneous heparin GI Prophylaxis: Pepcid
--- NOTE | 2021-10-19 08:23 | P.PN ---
Subjective Principal diagnosis: COVID-19 pneumonia The patient is here essentially because of bilateral Covid19 pneumonia. She states she is much improved but still feels tired. O2 is nominal on 2 L. No voiding difficulties Objective - Vital Signs Vital signs: Vital Signs Temp 97.8 F 10/19/21 02:31 Pulse 49 L 10/19/21 02:31 Resp 18 10/19/21 02:31 BP 110/65 10/19/21 02:31 Pulse Ox 90 L 10/19/21 02:31 Intake & Output 10/18/21 10/19/21 10/19/21 18:59 06:59 18:59 Intake Total 118 Balance 118 Intake: Oral 118 Other: Voiding Method Toilet # Voids 1 1 - Constitutional General appearance: Present: average body habitus - EENT Eyes: Absent: abnormal pupil - Neck Neck: Absent: lymphadenopathy - Respiratory Respiratory: bilateral: rales - Cardiovascular Rhythm: regular Heart sounds: normal: S1, S2 Abnormal Heart Sounds: Absent: S3 Gallop - Gastrointestinal General gastrointestinal: Present: soft. Absent: tenderness - Integumentary Integumentary: Absent: cellulitis - Neurologic Neurologic: Present: CNII-XII intact - Labs CBC & Chem 7: 10/15/21 09:43 10/16/21 08:09 Labs: Abnormal Lab Results - Last 24 Hours (Table) 10/18/21 Range/Units 05:55 Lactate Dehydrogenase 525 H (120-246) U/L C-Reactive Protein 2.10 H (0.00-0.80) mg/dL Assessment and Plan Plan: Continue current regimen of treatment. Appreciate pulmonology input. Check CBC and CMP in a.m.
[2021-10-19] MEDS: ALBUTEROL HFA INHALER INHALATION SCH ×3 (08:54→21:09)
[2021-10-19] MEDS: ASCORBIC ACID 500 MG TAB PO SCH (09:03)
[2021-10-19] MEDS: ZINC SULFATE 220 MG CAP PO SCH (09:03)
[2021-10-19] MEDS: DEXAMETHASONE SOD PHOSPHATE 10 MG/ML 1 ML VIAL IVP SCH (09:04)
[2021-10-19] MEDS: CHOLECALCIFEROL 25 MCG (1000 IU) TABLET PO SCH (09:04)
[2021-10-19] MEDS: ENOXAPARIN 40 MG/0.4 ML SYRINGE SQ SCH (09:04)
[2021-10-19] MEDS: FAMOTIDINE 20 MG TAB PO SCH ×2 (09:04→20:11)
[2021-10-19] MEDS: SODIUM CHLORIDE 0.9% 1,000 ML IV SCH ×2 (10:18→21:43)
--- NOTE | 2021-10-19 16:12 | P.PN ---
Subjective Progress Note Date: 10/19/21 This is a very pleasant 35-year-old female patient who follows with Dr. Dumas as her primary care provider. She has a history of migraines. Approximately 10 days ago she developed symptoms of increasing shortness of breath, cough and congestion. She presented here on 10/10/2021 was found to have COVID-19 infection. She was treated with monoclonal antibodies and discharged home. She re-presented here yesterday with worsening shortness of breath, cough and congestion. O2 saturation 87% on room air. Chest x-ray shows bilateral multifocal patchy opacities. I count 4.4. Hemoglobin 11.9. Lymphocytes 0.7. D-dimer 0.83. Sodium 138. Potassium 4.4. Glucose 124. Ferritin 390. LDH 1366. C-reactive protein 13.0. HCG negative. Pro-calcitonin 0.12. She was initiated on Decadron, Lovenox, vitamin supplements. He is seen today in consultation on the regular medical floor. Currently sitting on the bed. Awake and alert in no acute distress. No worsening shortness of breath, cough or congestion. Maintaining O2 saturations in the 90s on 3 L/m per nasal cannula. The patient is seen today 10/17/2021 and follow-up on the regular medical floor. She is currently resting comfortably in bed. Awake and alert in no acute distress. 2 and a bit better today compared to yesterday. Still with a cough and congestion. No fever or chills. Some shortness of breath with exertion. She has 0.9 normal saline at 75 ML's per hour. She is maintaining O2 saturation in the 90s on 3 L/m per nasal cannula. She is continued on Decadron, Lovenox, vitamin supplements. The patient is seen today 10/18/2021 in follow-up on the regular medical floor. She is awake and alert in no acute distress. She is maintaining good O2 saturations in the 90s on 2 L/m per nasal cannula. Chest x-ray continues to show bilateral airspace and interstitial opacities secondary to COVID-19 pneumonia. d-dimer 1.36. LDH 525. C-reactive protein 2.10. She is continued on Decadron, Lovenox, vitamin supplements. 10/19/2021, the patient is doing well. The patient remains on oxygen at 2 L per minute nasal cannula. Pulse ox is around 94% and I took her off the oxygen and the patient is able to maintain a pulse ox is above 90%. She isn't on vaccinated person. She is currently on Decadron. Her symptoms initially started on 10/07/2021. On examination, continues to have crackles in the mid and lower lung montes bilaterally. She is obese and she has a BMI of 42.8. She also has history of migraines. Inflammatory markers were quite elevated at the time of admission and they improved gradually. The LDH level from yesterday was down to 525 with a CRP of 2.1. Objective - Vital Signs Vital signs: Vital Signs Temp 98.5 F 10/19/21 14:00 Pulse 60 10/19/21 14:00 Resp 18 10/19/21 14:00 BP 121/80 10/19/21 14:00 Pulse Ox 94 L 10/19/21 14:00 Intake & Output 10/18/21 10/19/21 10/19/21 18:59 06:59 18:59 Intake Total 118 1000 Balance 118 1000 Intake: Oral 118 1000 Other: Voiding Method Toilet # Voids 1 1 - Exam GENERAL EXAM: Alert, pleasant 35 year old female patient, on 2 L nasal cannula, comfortable in no apparent distress. HEAD: Normocephalic. EYES: Normal reaction of pupils, equal size. NOSE: Clear with pink turbinates. THROAT: No erythema or exudates. NECK: No masses, no JVD. CHEST: No chest wall deformity. LUNGS: Equal air entry with few scattered rhonchi, crackles in the bases CVS: S1 and S2 normal with no audible murmur, regular rhythm. ABDOMEN: No hepatosplenomegaly, normal bowel sounds, no guarding or rigidity. SPINE: No scoliosis or deformity SKIN: No rashes CENTRAL NERVOUS SYSTEM: No focal deficits, tone is normal in all 4 extremities. EXTREMITIES: There is no peripheral edema. No clubbing, no cyanosis. Peripheral pulses are intact. - Labs CBC & Chem 7: 10/15/21 09:43 10/16/21 08:09 Assessment and Plan Plan: 1 Acute hypoxemic respiratory failure secondary to COVID-19 pneumonia. Symptoms started 10 days ago. She received monoclonal antibodies on 10/10/2021. Not vaccinated. Outside the window for Remdesivir. The patient is currently improving for now. 2 Elevated inflammatory markers secondary to above 3 History of migraines 4 Obesity Plan: Clinically improving. Check the patient off oxygen and checked the pulse ox and decided oxygen therapy is still needed Continue Decadron Inflammatory markers are essentially improving Continue Lovenox, Decadron, vitamin supplements
[2021-10-20 08:17] VITALS: BP 126/85; PULSE 56; RESP 17; TEMP 97.6
--- NOTE | 2021-10-20 08:29 | P.DS ---
Providers Date of admission: 10/15/21 11:23 Attending physician: Saul Dumas Consults: 10/15/21 11:22 Consult Physician Routine Consulting Provider: Aubrey Ashford Consult Reason/Comments: COVID PNA Do you want consulting provider notified?: Yes Primary care physician: Saul Dumas Hospital Course: This discharge summary an 35-year-old white female essentially meant for bilateral COVID-19 pneumonia. The patient was stabilized with significant issues. She is significantly tired.. I was consulted. Appropriate treatment was instituted including dexamethasone. She responded quite well after having several days of this type of treatment. No voiding difficulties. She feels as though her strength is able to return to do minimal ADLs. She will be discharged in stable condition to follow-up with me in about 5-7 days. Patient Condition at Discharge: Fair Plan - Discharge Summary New Discharge Prescriptions: New Dexamethasone [Decadron] 6 mg PO DAILY #7 tablet Famotidine [Pepcid] 20 mg PO Q12HR #60 tab Albuterol Inhaler [Ventolin Hfa Inhaler] 2 puff INHALATION QID PRN #1 each PRN Reason: Shortness Of Breath Continue Zinc 50 mg PO DAILY Vitamin B Complex 1 cap PO DAILY Cholecalciferol [Vitamin D3 (25 Mcg = 1000 Iu)] 25 mcg PO DAILY Ascorbic Acid [Vitamin C] 500 mg PO DAILY Discontinued Ibuprofen [Motrin Ib] 800 mg PO Q8H PRN PRN Reason: Pain Discharge Medication List Ascorbic Acid [Vitamin C] 500 mg PO DAILY 10/15/21 [History] Cholecalciferol [Vitamin D3 (25 Mcg = 1000 Iu)] 25 mcg PO DAILY 10/15/21 [History] Vitamin B Complex 1 cap PO DAILY 10/15/21 [History] Zinc 50 mg PO DAILY 10/15/21 [History] Albuterol Inhaler [Ventolin Hfa Inhaler] 2 puff INHALATION QID PRN #1 each 10/20/21 [Rx] Dexamethasone [Decadron] 6 mg PO DAILY #7 tablet 10/20/21 [Rx] Famotidine [Pepcid] 20 mg PO Q12HR #60 tab 10/20/21 [Rx] Follow up Appointment(s)/Referral(s): Saul Dumas MD [Primary Care Provider] - 1 Week Discharge Disposition: HOME SELF-CARE
[2021-10-20] MEDS: ALBUTEROL HFA INHALER INHALATION SCH (08:39)
[2021-10-20] MEDS: ZINC SULFATE 220 MG CAP PO SCH (09:04)
[2021-10-20] MEDS: ASCORBIC ACID 500 MG TAB PO SCH (09:04)
[2021-10-20] MEDS: CHOLECALCIFEROL 25 MCG (1000 IU) TABLET PO SCH (09:04)
[2021-10-20] MEDS: FAMOTIDINE 20 MG TAB PO SCH (09:04)
[2021-10-20] MEDS: DEXAMETHASONE SOD PHOSPHATE 10 MG/ML 1 ML VIAL IVP SCH (09:05)
[2021-10-20] MEDS: ENOXAPARIN 40 MG/0.4 ML SYRINGE SQ SCH (09:05)
[2021-10-20 09:13] LABS: HCT 35.1 % (37.2-46.3); HGB 11.5 g/dL (12.0-15.0); MCHC 32.8 g/dL (32.0-37.0); MCV 85.6 fL (80.0-97.0); Mean Platelet Volume 9.6 fL (9.5-12.2); Platelet Count 391 X 10*3/uL (140-440); RDW 13.5 % (11.5-14.5); WBC 7.96 X 10*3/uL (4.50-10.00)
[2021-10-20 12:53] LABS: African American GFR (CKD) 134.1 (60.0-200.0); Albumin 3.2 g/dL (3.8-4.9); Albumin/Globulin Ratio 1.28 (1.60-3.17); Anion Gap 10.9 mmol/L (10.00-18.00); BUN/Creat Ratio 14.7 Ratio (12.00-20.00); Blood Urea Nitrogen 9.2 mg/dL (9.0-27.0); Calcium 8.4 mg/dL (8.7-10.3); Carbon Dioxide 25.1 mmol/L (20.0-27.5); Globulin 2.5 g/dL (1.6-3.3); Non-African American GFR(CKD) 115.7 (60.0-200.0); Total Bilirubin 0.3 mg/dL (0.30-1.20); Total Protein 5.8 g/dL (6.2-8.2)
== END 2021-10-20 09:55 | disposition home or self-care (01) | DRG 177 ==
LOC: EC 08:47 → 4SSUR 11:23 → 6NMEDSUR 22:04
PROVIDERS: ADMIT Family Medicine; ATTEND Family Medicine
DX: U07.1 COVID-19 (principal); J12.82 Pneumonia due to coronavirus disease 2019; J96.01 Acute respiratory failure with hypoxia; Z68.41 Body mass index [BMI] 40.0-44.9, adult; E66.9 Obesity, unspecified; Z79.899 Other long term (current) drug therapy; Z87.891 Personal history of nicotine dependence; D72.810 Lymphocytopenia; G43.909 Migraine, unspecified, not intractable, without status migrainosus
CPT/HCPCS: 36415; 71045; 80048; 80053; 82728; 83605; 83615; 83735; 84145; 84703; 85025; 85027; 85379; 85610; 85730; 86140; 87040; 93005; 94640; 96361; 96374; 99285

== ENCOUNTER 2023-11-08 05:55 | Day surgery (SDC) | payer BC, OTHER ==
[2023-11-03 13:27] VITALS: BMI 42.8
[~2023-11-08 05:55] MED LIST: Pre Op ABX Message 1 EACH MISC MISCELLANE ONE
--- NOTE | 2023-11-08 06:29 | P.HPOB ---
History of Present Illness H&P Date: 11/08/23 Chief Complaint: menorrhagia and family planning 37 year old G0 presents for Laparoscopic tubal ligation and D&C hysteroscopy, endometrial ablation with NovaSure Review of Systems All systems: negative Constitutional: Denies chills, Denies fever Eyes: denies blurred vision, denies pain Ears, nose, mouth and throat: Denies headache, Denies sore throat Cardiovascular: Denies chest pain, Denies shortness of breath Respiratory: Denies cough Gastrointestinal: Denies abdominal pain, Denies diarrhea, Denies nausea, Denies vomiting Genitourinary: Denies dysuria, Denies hematuria Musculoskeletal: Denies myalgias Integumentary: Denies pruritus, Denies rash Neurological: Denies numbness, Denies weakness Psychiatric: Denies anxiety, Denies depression Endocrine: Denies fatigue, Denies weight change Past Medical History Past Medical History: No Reported History Additional Past Medical History / Comment(s): HEAVY FREQ MENSES. MIGRAINES History of Any Multi-Drug Resistant Organisms: None Reported Past Surgical History: Adenoidectomy Additional Past Surgical History / Comment(s): Tubes in ears as a child. Past Anesthesia/Blood Transfusion Reactions: No Reported Reaction Smoking Status: Former smoker - Past Family History Mother Family Medical History: Cancer, Deep Vein Thrombosis (DVT) Medications and Allergies Home Medications Medication Instructions Recorded Confirmed Type Ascorbic Acid [Vitamin C] 500 mg PO DAILY 10/15/21 10/15/21 History Cholecalciferol [Vitamin D3 (25 25 mcg PO DAILY 10/15/21 10/15/21 History Mcg = 1000 Iu)] Vitamin B Complex 1 cap PO DAILY 10/15/21 10/15/21 History Zinc 50 mg PO DAILY 10/15/21 10/15/21 History Albuterol Inhaler [Ventolin Hfa 2 puff INHALATION QID PRN #1 each 10/20/21 Rx Inhaler] Famotidine [Pepcid] 20 mg PO Q12HR #60 tab 10/20/21 Rx dexAMETHasone [Decadron] 6 mg PO DAILY #7 tablet 10/20/21 Rx Allergies Allergy/AdvReac Type Severity Reaction Status Date / Time No Known Allergies Allergy Verified 11/03/23 13:09 Exam Osteopathic Statement: *. No significant issues noted on an osteopathic structural exam other than those noted in the History and Physical/Consult. HEart: RRR Lungs: CTAB Abdomen: soft, nontender Extremeties: neg yuly's Assessment and Plan (1) Menorrhagia Current Visit: Yes Status: Acute Code(s): N92.0 - EXCESSIVE AND FREQUENT MENSTRUATION WITH REGULAR CYCLE SNOMED Code(s): 317661562 (2) Family planning Current Visit: Yes Status: Acute Code(s): Z30.09 - ENCOUNTER FOR OT GENERAL CNSL AND ADVICE ON CONTRACEPTION SNOMED Code(s): 251192252 Plan: 1. laparoscopic tubal ligation with D&C hysteroscopy and endometrial ablation with NovaSure
[2023-11-08] MEDS ORDERED: ONDANSETRON 4 MG/2 ML VIAL IVP ONE (06:30)
[2023-11-08] MEDS ORDERED: LIDOCAINE 1% (10MG/ML) FOR IV START INTRADERMA PRN (06:30)
[2023-11-08] MEDS ORDERED: DEXAMETHASONE SOD PHOSPHATE 4 MG/ML 1 ML VIAL IV ONE (06:30)
[2023-11-08 06:41] VITALS: RESP 16
[2023-11-08] MEDS: LACTATED RINGERS 1,000 ML IV SCH ×2 (06:56→07:28)
[2023-11-08] MEDS ORDERED: MIDAZOLAM 2 MG/2 ML VIAL IV PRN (07:00)
[2023-11-08] MEDS ORDERED: HYDROmorphone 0.5 MG/0.5 ML SYRINGE IVP PRN (07:00)
[2023-11-08] MEDS ORDERED: MIDAZOLAM 2 MG/2 ML VIAL ONE (07:24)
[2023-11-08] MEDS ORDERED: ACETAMINOPHEN IV (For NPO) 1,000 MG/100 ML VIAL ONE (07:24)
[2023-11-08] MEDS ORDERED: PROPOFOL 10 MG/ML 20 ML VIAL IV ONE (07:24)
[2023-11-08] MEDS ORDERED: NEOSTIGMINE 1 MG/ML 10 ML VIAL ONE (07:24)
[2023-11-08] MEDS ORDERED: HYDROmorphone (PF) 1 MG/ML ONE (07:24)
[2023-11-08] MEDS ORDERED: GLYCOPYRROLATE 0.2 MG/ML 2 ML VIAL ONE (07:24)
[2023-11-08] MEDS ORDERED: KETOROLAC 30 MG/ML 1 ML VIAL ONE (07:24)
[2023-11-08] MEDS ORDERED: fentaNYL (PF) 50 MCG/ML 2 ML AMP ONE (07:24)
[2023-11-08] MEDS ORDERED: SUCCINYLCHOLINE CHLORIDE 200 MG/10 ML VIAL IV ONE (07:24)
[2023-11-08] MEDS ORDERED: ROCURONIUM 10 MG/ML (5 ML VIAL) IV ONE (07:24)
[2023-11-08] MEDS ORDERED: LIDOCAINE 1% INJ 10MG/ML (20 ML MDV) ONE (07:24)
[2023-11-08] MEDS ORDERED: IV FLUID CONTINUATION 1,000 ML IV ONE (08:23)
[2023-11-08] MEDS ORDERED: BUPIVACAINE (PF) 0.25% 30 ML VIAL SQ ONE (08:23)
--- NOTE | 2023-11-08 08:30 | P.OP ---
Date of Procedure: 11/08/23 Preoperative Diagnosis: 1. menometrorrhagia 2. family planning Postoperative Diagnosis: same Procedure(s) Performed: D&C hysteroscopy endometrial ablation with NovaSure and laparoscopic tubal ligation. Anesthesia: STEPHAN Surgeon: Amelia Francis Estimated Blood Loss (ml): 3 IV fluids (ml): 900 Urine output (ml): 20 Pathology: other (endometrial currettings) Condition: stable Disposition: floor Operative Findings: cavity length 6.5, width 4.7cm, power 168 Mederos, time of ablation 36 seconds. Description of Procedure: Patient is taken the operating room where general anesthesia was obtained without difficulty. She was prepped and draped in normal sterile fashion dorsal lithotomy position, legs placed in the [place] cane stirrups. Bladder was drained of all urine. Weighted speculum placed in the vagina and the anterior lip the cervix was grasped with serial tooth tenaculum. The uterus sounded to 10 cm and the cervix under 3.5 cm making the cavity length 6.5 cm. The cervix was dilated to #8 Hegar dilator. Hysteroscopy was then performed. Both ostia were visualized and there was a smooth contour of the uterus. Sharp curet was then gently used to obtain endometrial curettings. The NovaSure was introduced into the uterus with a cavity length of 6.5 cm, width 4.7 cm. after cavity assessment was passed, the time of ablation was 36 seconds at 168 W. Hysteroscopy was again performed and adequate ablation was noted. kroner manipulator was then placed into the uterus. Attention was then turned to the abdomen and gloves were changed. A 10 mm infraumbilical incision was made the scalpel and 10 mm optical trocar was placed under direct visualization. A 5 mm suprapubic Incision was made and a 5 mm optical trocar was placed under direct visualization. Survey of the pelvis revealed normal uterus tubes and ovaries. The left fallopian tube was grasped with a Kleppinger and fulgurated 2-3 cm on this side in the ampullar portion. The right fallopian tube was grasped with a Kleppinger and fulgurated 2-3 cm in the ampullar portion. All instruments were then removed from the abdomen and vagina. The 10 mm infraumbilical incision was closed with 0 Vicryl and the fascial layer and then 4-0 Vicryl in a subcuticular fashion. The 5 mm incision was closed with 4-0 Vicryl in a subcuticular fashion. Patient tolerated procedure well, sponge and instrument counts correct 2 and she was taken to recovery room in stable condition.
[2023-11-08 09:11] VITALS: TEMP 97.1
[2023-11-08 10:24] VITALS: BP 99/64; PULSE 63
== END 2023-11-08 10:48 | disposition home or self-care (01) ==
LOC: OR 05:55
PROVIDERS: ATTEND Obstetrics & Gynecology
DX: N85.00 Endometrial hyperplasia, unspecified (principal); Z30.2 Encounter for sterilization; E66.01 Morbid (severe) obesity due to excess calories; Z79.52 Long term (current) use of systemic steroids; Z87.891 Personal history of nicotine dependence; Z68.42 Body mass index [BMI] 45.0-49.9, adult
CPT/HCPCS: 58670; 58563; 81025; 88305; J2250; J0330; J1100; J2710; J2405; J2001; J3010; J1885; J1170; J0131; J2704; J0665